=== PATIENT | male | born 1980 | race American Indian/Alaskan Native ===

== ENCOUNTER 2016-08-14 15:17 | Emergency (ER) | payer MEDICAID ==
[2016-08-14 16:05] VITALS: BP 124/77; PULSE 85; RESP 17; TEMP 98.3; O2SAT 99
--- NOTE | 2016-08-14 17:41 | C.PDOC ---
History Of Present Illness Pt is here requesting detox from Heroin. Time Seen by Provider: 08/14/16 17:26 Chief Complaint (Nursing): Substance Abuse History Per: Patient Onset/Duration Of Symptoms: Days Current Symptoms Are (Timing): Still Present Suicide/Self Injury Attempted (Context): None Modifying Factor(s): Alcohol, Marijuana, Narcotics Severity: Moderate Associated Symptoms: denies: Suicidal Thoughts, Suicidal Plan Additional History Per: Prior Records Past Medical History Reviewed: Historical Data, Nursing Documentation, Vital Signs Vital Signs: Last Vital Signs Temp 98.3 F 08/14/16 16:04 Pulse 85 08/14/16 16:04 Resp 17 08/14/16 16:04 BP 124/77 08/14/16 16:04 Pulse Ox 99 08/14/16 16:04 - Medical History PMH: No Chronic Diseases Surgical History: Appendectomy Family History: States: Unknown Family Hx - Social History Hx Tobacco Use: Yes Hx Alcohol Use: Yes Hx Substance Use: Yes (Snorts Heroin.) - Immunization History Hx Influenza Vaccination: No Review Of Systems Except As Marked, All Systems Reviewed And Found Negative. Constitutional: Negative for: Fever, Weakness Cardiovascular: Negative for: Chest Pain Respiratory: Negative for: Shortness of Breath Gastrointestinal: Negative for: Vomiting, Abdominal Pain Musculoskeletal: Negative for: Neck Pain Skin: Negative for: Rash Neurological: Negative for: Weakness, Numbness, Seizures, Altered Mental Status Psych: Negative for: Psychosis Physical Exam - Physical Exam Appears: Non-toxic, No Acute Distress Skin: Normal Color, Warm, Dry, No Rash Head: Atraumatic, Normacephalic Eye(s): bilateral: PERRL, EOMI Neck: Normal ROM, No Midline Cervical Tenderness, No Step Off Deformity, Supple Cardiovascular: Rhythm Regular Respiratory: Normal Breath Sounds, No Accessory Muscle Use Gastrointestinal/Abdominal: Soft, No Tenderness Extremity: Normal ROM Neurological/Psych: Oriented x3, Normal Motor, Normal Sensation ED Course And Treatment O2 Sat by Pulse Oximetry: 99 Pulse Ox Interpretation: Normal Progress Note: I was informed by the staff that there are no available detox beds today. Pt was given the telephone number to call back for pre-screening. Disposition Counseled Patient/Family Regarding: Diagnosis, Need For Followup, Smoking Cessation - Disposition Disposition: HOME/ ROUTINE Disposition Time: 17:42 Condition: STABLE Additional Instructions: Follow up with a detox program as instructed. Return to the ER if you develop suicidal or homicidal thoughts, worsening of symptoms or if you have any other concerns. Instructions: Polysubstance Abuse (ED) Print Language: RWANDAN - Clinical Impression Clinical Impression: Drug abuse
== END 2016-08-14 17:55 | disposition home or self-care (01) ==
LOC: C.ER 15:17
DX: F19.10 Other psychoactive substance abuse, uncomplicated (principal)